=== PATIENT | female | born 1970 | race Hispanic/Latino ===

== ENCOUNTER → 2019-05-26 | Day surgery (SDC) | payer OTHER ==
--- NOTE | 2019-05-24 12:15 | NUR ---
Dr. Tay notified of labs not within [address] Tay ordered CBC, CMP, and PT/INR.
[2019-05-24 12:56] LABS: BASOPHILS # (AUTO) 0.1 (0.0-0.1); BASOPHILS % 0.7 % (0.0-1.0); EOSINOPHILS # (AUTO) 0.3 (0.0-0.4); EOSINOPHILS % 3.3 % (0.0-6.0); HEMATOCRIT 42.3 % (34.2-44.1); LYMPHOCYTES # (AUTO) 3.3 (1.0-3.2); LYMPHOCYTES % 43.3 % (18.0-39.1); MEAN CORPUSCULAR HEMOGLOBIN 29.4 pg (28-32); MEAN CORPUSCULAR HGB CONC 33.1 g/dL (31-35); MEAN CORPUSCULAR VOLUME 88.9 fL (81-99); MONOCYTES # (AUTO) 0.7 (0.2-0.8); MONOCYTES % 9.3 % (4.4-11.3); NEUTROPHILS # (AUTO) 3.2 (2.1-6.9); PLATELET COUNT 201 x10e3/uL (140-360); RED BLOOD COUNT 4.76 x10e6/uL (3.6-5.1); RED CELL DISTRIBUTION WIDTH 12.2 % (11.7-14.4)
[2019-05-24 13:08] LABS: INR 0.94; PROTHROMBIN TIME 13.1 seconds (11.9-14.5)
[2019-05-24 13:17] LABS: ALANINE AMINOTRANSFERASE 37 IU/L (0-55); ALBUMIN 4.4 g/dL (3.5-5.0); ALBUMIN/GLOBULIN RATIO 1.2 (0.8-2.0); ALKALINE PHOSPHATASE 62 IU/L (40-150); ANION GAP 14.2 mmol/L (8-16); BLOOD UREA NITROGEN 19 mg/dL (7-26); BUN/CREATININE RATIO 22 (6-25); CALCIUM 10.5 mg/dL (8.4-10.2); CARBON DIOXIDE 28 mmol/L (22-29); CHLORIDE 98 mmol/L (98-107); CREATININE, SERUM 0.86 mg/dL (0.57-1.11); EST GLOMERULAR FILTRATION RATE > 60 ML/MIN (60-); GLUCOSE 89 mg/dL (74-118); POTASSIUM 4.2 mmol/L (3.5-5.1); SODIUM 136 mmol/L (136-145)
[2019-05-26] VITALS (7 sets, daily range): BP systolic 124–143; BP diastolic 60–82
[~2019-05-26] VITALS: Ht 162.6 cm; Wt 116.1 kg
[~2019-05-26] MED LIST: ALPRAZOLAM 0.5 MG TAB ONE; ATORVASTATIN CA20 MG PO; BENICAR HCT 201 EACH PO; DIPHENHYDRAMINE HCL 25 MG CAP ONE; FENTANYL CITRATE/PF 100MCG/2 ML INJ ONE; HEPARIN SOD (PORCINE) 1000 UNIT/ML 30ML ONE; HEPARIN SOD/SOD CHLORIDE 2,000 ML ONE; IOPAMIDOL 370 MG/ML 200 ML INFUS..BTL INJ ONE; LIDOCAINE HCL 2% LOCAL 20 ML VIAL ONE; MIDAZOLAM HCL 2 MG/2 ML VIAL ONE; SODIUM CHLORIDE 0.9% 1000ML 1,000 ML ONE; VERAPAMIL HCL 2.5 MG/ML 2 ML VIAL ONE
--- OUTSIDE RECORDS SUMMARY | 2019-05-26 12:35 | XMS REPORT | Summary of Care ---
Author Author [facility] Organization [facility] Address Unknown Phone Unavailable Encounter HQ Encntr_wong(FIN) [id number] Date(s): 02/01/19 - 03/02/19 [facility] [address] [place] [address]- [phone] Discharge Disposition: Home or Self Care Attending Physician: Gibran To MD Referring Physician: Gibran To MD Vital Signs No data available for this section Problem List No data available for this section Allergies, Adverse Reactions, Alerts No data available for this section Medications No data available for this section Results No data available for this section Immunizations No data available for this section Procedures No data available for this section Social History No data available for this section Assessment and Plan No data available for this section
--- OUTSIDE RECORDS SUMMARY | 2019-05-26 12:35 | XMS REPORT | Encounter Summary ---
Author Organization Unknown Address [address] [place] [address] Phone [phone] Reason for Visit Medical Complaint Instructions 1. Influenza-like illness Tamiflu 75 mg capsule rapid flu (A+B) influenza (flu): care instructions 2. History of hypertension 3. Immunization due 4. Body mass index 40+ - severely obese body mass index: care instructions Discussion Note Take charge of your health handout given and discussed. SE of medictions discussed and pt verbalized understanding. Plan of Care Patient Instructions How can you care for yourself at home? Get plenty of rest. Drink plenty of fluids, enough so that your urine is light yellow or clear like water. If you have kidney, heart, or liver disease and have to limit fluids, talk with your doctor before you increase the amount of fluids you drink. Take an htmr-onq-gdgkcws pain medicine if needed, such as acetaminophen (Tylenol), ibuprofen (Advil, Motrin), or naproxen (Aleve), to relieve fever, headache, and muscle aches. Read and follow all instructions on the label. No one younger than 20 should take aspirin. It has been linked to Tahir syndrome, a serious illness. Do not smoke. Smoking can make the flu worse. If you need help quitting, talk to your doctor about stop-smoking programs and medicines. These can increase your chances of quitting for good. Breathe moist air from a hot shower or from a sink filled with hot water to help clear a stuffy nose. Before you use cough and cold medicines, check the label. These medicines may not be safe for young children or for people with certain health problems. If the skin around your nose and lips becomes sore, put some petroleum jelly on the area. To ease coughing: Drink fluids to soothe a scratchy throat. Suck on cough drops or plain hard candy. Take an gkkc-tff-unzedhf cough medicine that contains dextromethorphan to help you get some sleep. Read and follow all instructions on the label. Raise your head at night with an extra pillow. This may help you rest if coughing keeps you awake. Take any prescribed medicine exactly as directed. Call your doctor if you think you are having a problem with your medicine. To avoid spreading the flu Wash your hands regularly, and keep your hands away from your face. Stay home from school, work, and other public places until you are feeling better and your fever has been gone for at least 24 hours. The fever needs to have gone away on its own without the help of medicine. Ask people living with you to talk to their doctors about preventing the flu. They may get antiviral medicine to keep from getting the flu from you. To prevent the flu in the future, get a flu vaccine every fall. Encourage people living with you to get the vaccine. Cover your mouth when you cough or sneeze. When should you call for help? Call 911 anytime you think you may need emergency care. For example, call if: You have severe trouble breathing. Call your doctor now or seek immediate medical care if: You have new or worse trouble breathing. You seem to be getting much sicker. You feel very sleepy or confused. You have a new or higher fever. You get a new rash. Watch closely for changes in your health, and be sure to contact your doctor if: You begin to get better and then get worse. You are not getting better after 1 week. Reminders Provider Appointments None recorded. Lab Rapid Flu (A+B) 11/03/2018 [facility] Referral None recorded. Procedures None recorded. Surgeries None recorded. Imaging None recorded. Medications Name Start Date atorvastatin 20 mg tablet TAKE ONE (1) TABLET(S) BY MOUTH AT BEDTIME. diclofenac 1 % topical gel olmesartan 20 mg-hydrochlorothiazide 12.5 mg tablet Tamiflu 75 mg capsule Take 1 capsule twice a day by oral route for 5 days. Medications Administered None recorded. Vitals Height Weight BMI Blood Pressure 5 ft 4 in 240 lbs 41.2 kg/m2 (1) 120/78 mm[Hg] (2) 116/72 mm[Hg] Lab Results Date Name Specimen Result Interpretation Description Value Range Status Address Rapid Flu (A+B) Influenza a negative [facility]: [address] [place] [address] Influenza B negative [facility]: [address] [facility] Allergies Code Code System Name Reaction Severity Status Onset Penicillins Active Problems No Known Problems Procedures Date Name Performed by 07/21/2017 Tubal Ligation Information not available Vaccine List None recorded. Social History Smoking Status Never Smoker Past Encounters 11/03/2018 Influenza-like Illness; History of Hypertension; Immunization Due; Body Mass Index 40+ - Severely Obese Miguel Angel Capone, [facility]-C: [address] [place] [address], Ph. History of Present Illness Uhmpwxo-Zoffa-Rop Reported By: Patient HPI: Quality: cannot identify. Duration: 1 days. Severity: highest temperature 101. Onset/Timing: first recorded 11/03/18. Context: no ill contacts, no tick/insect bites, no recent travel, no new medications. Associated Symptoms: no rash, no lethargy, fever/chills, headache, muscle aches, tired (fatigue); vomiting. Modifying Factors OTC medication Review of Systems:ROS as noted in the HPI Review of Systems Basic Reported By: Patient Physical Exam Adult Basic, Adult Female Complete Reported By: Patient Constitutional: General Appearance: obese. Level of Distress: moderate distress, acutely ill. Ambulation: ambulating normally Psychiatric: Mental Status: active and alert. Orientation: to time, to place, to person Eyes: Lids and Conjunctivae: no discharge, no pallor, injected Suo-Ienr-Ezrlx-Throat: Ears: no lesions on external ear, no outer ear tenderness, EACs clear, TMs clear. Hearing: no hearing loss. Nose: no lesions on external nose, nares patent, no septal deviation, nasal passages clear, no sinus tenderness, post nasal drip. Lips, Teeth, and Gums: no mouth or lip ulcers, no bleeding gums, normal dentition. Oropharynx: moist mucous membranes, no exudates, tonsils not enlarged, erythema Neck: Lymph Nodes: anterior cervical LAD Lungs: Respiratory effort: no dyspnea, no tachypnea, no use of accessory muscles, no intercostal retractions. Auscultation: breath sounds normal Cardiovascular: Heart Auscultation: RRR, no murmurs Skin: Inspection and palpation: no rash
--- OUTSIDE RECORDS SUMMARY | 2019-05-26 12:35 | XMS REPORT | Summary of Care ---
Author Author [facility] Organization [facility] Address Unknown Phone Unavailable Encounter HQ Encntr_alidayanara(FIN) [id number] Date(s): 03/07/19 - 04/05/19 [facility] [address] [place] [address]- [phone] Discharge Disposition: Home or Self Care Attending [...]
--- OUTSIDE RECORDS SUMMARY | 2019-05-26 12:35 | XMS REPORT | Summary of Care ---
Author Author [facility] Outpatient Imaging [facility] Outpatient Imaging [facility] Address Unknown Phone Unavailable Encounter HQ Loganntr_wong(SANKET) [id number] Date(s): 03/31/17 - 03/31/17 [facility] Outpatient Imaging [facility] [address] [facility], [address] [place], [place] [address] [phone] Discharge Disposition: Home or Self Care Attending Physician: Alvin Desouza MD Vital Signs No data available for [...]
--- OUTSIDE RECORDS SUMMARY | 2019-05-26 12:35 | XMS REPORT | Continuity of Care Document ---
Author Author [facility] Organization [facility] Address Unknown Phone Unavailable Care Team Providers Care Assemblyman Or Woman Name Role Phone [facility] Unavailable Unavailable Problems Problem Status Onset Date Classification Date Reported Comments Source E66.01 / I10 / E78.00 Active 04/05/2019 [facility] Body mass index 40+ - severely obese 03/21/2019 Diagnosis 03/21/2019 [facility] Acute rhinosinusitis 03/21/2019 Diagnosis 03/21/2019 [facility] Immunization 03/21/2019 Diagnosis 03/21/2019 [facility] Hyperlipidemia 03/21/2019 Problem 03/21/2019 [facility] Hypertensive disorder 03/21/2019 Problem 03/21/2019 [facility] Immunization due 11/04/2018 Diagnosis 11/04/2018 [facility] Influenza-like illness 11/04/2018 Diagnosis 11/04/2018 [facility] History of hypertension 11/04/2018 Diagnosis 11/04/2018 [facility] M25.511 - PAIN IN RIGHT SHOULDER Active 03/31/2017 [facility] Acute upper respiratory infection Problem 01/11/2018 [facility] Medications Medication Details Route Status Patient Instructions Ordering Provider Order Date Source Acetaminophen 500 MG Oral Tablet acetaminophen 500 mg tablet Take 2 tablets every 6 hours by oral route. Active [facility] atorvastatin 20 MG Oral Tablet atorvastatin 20 mg tablet TAKE ONE (1) TABLET(S) BY MOUTH DAILY _NEEDS OFFICE VISIT_. Active [facility] benzonatate 200 MG Oral Capsule benzonatate 200 mg capsule Take 1 capsule 3 times a day by oral route. Active [facility] Lisinopril 10 MG Oral Tablet lisinopril 10 mg tablet TAKE ONE (1) TABLET(S) BY MOUTH ONCE A DAY. Active [facility] Oseltamivir 75 MG Oral Capsule [Tamiflu] Tamiflu 75 mg capsule Take 1 capsule twice a day by oral route for 5 days. Active [facility] Diclofenac Sodium 0.01 MG/MG Topical Gel diclofenac 1 % topical gel Active [facility] Hydrochlorothiazide 12.5 MG / Olmesartan medoxomil 20 MG Oral Tablet olmesartan 20 mg-hydrochlorothiazide 12.5 mg tablet TAKE ONE (1) TABLET(S) BY MOUTH DAILY. Active [facility] Allergies, Adverse Reactions, Alerts Substance Category Reaction Severity Reaction type Status Date Reported Comments Source Penicillins Allergy to substance 08/06/2009 [facility] Immunizations No Data Provided for This Section Results Order Name Results Value Reference Range Date Interpretation Comments Source Influenza A negative 11/03/2018 [facility] Influenza B negative 11/03/2018 [facility] Influenza A negative 01/10/2018 [facility] Influenza B negative 01/10/2018 [facility] Pathology Reports No Data Provided for This Section Diagnostic Reports Report Value Date Source Chest 2 views DX EXAM: XR CHEST 2 VIEWS DATE: 03/29/2018 4:13 PM CDT INDICATION: - persistent cough COMPARISON: None. TECHNIQUE: PA and lateral chest radiographs. FINDINGS: Lines, tubes and hardware: None. Lungs and pleura: The lungs are clear. No pleural effusion or pneumothorax. Heart and mediastinum: The heart size is normal. The mediastinal contours are normal. Pulmonary vascularity is normal. Bones: No acute abnormality. IMPRESSION: 1. No acute abnormality. 03/29/2018 [facility] Shoulder series DX EXAM: XR LEFT SHOULDER 3 VIEWS DATE: 03/31/2017 3:26 PM CDT INDICATION: - M25.511 Pain in right shoulder COMPARISON: None available TECHNIQUE: 3 views of the shoulder FINDINGS: No acute fracture or malalignment is identified. Calcific tendinosis is noted at the insertion of the supraspinatus. No other soft tissue abnormality is identified. IMPRESSION: 1. No acute abnormality. 2. Supraspinatus calcific tendinosis. 03/31/2017 [facility] Consultation Notes No Data Provided for This Section Discharge Summaries No Data Provided for This Section History and Physicals No Data Provided for This Section Vital Signs Vital Sign Value Date Comments Source Diastolic (mm Hg) 74 03/21/2019 [facility] Height 64 03/21/2019 [facility] Systolic (mm Hg) 116 03/21/2019 [facility] Weight 256 03/21/2019 [facility] Diastolic (mm Hg) 72 11/03/2018 [facility] Height 64 11/03/2018 [facility] Systolic (mm Hg) 116 11/03/2018 [facility] Weight 240 11/03/2018 [facility] Diastolic (mm Hg) 84 01/10/2018 [facility] Height 63 01/10/2018 [facility] Systolic (mm Hg) 136 01/10/2018 [facility] Weight 250 01/10/2018 [facility] Encounters Location Location Details Encounter Type Encounter Number Reason For Visit Attending Provider ADM Date DC Date Status Source [facility] Outpatient Imaging [facility] [id number] Alvin Desouza 03/31/2017 04/01/2017 [facility] [place] - [facility] - [id number] Ayden Lawson, LITHOGRAPHIC RETOUCHER APPRENTICE-C: [address] [place] [address], Ph. [id number] Ayden Lawson 01/10/2018 [facility] Outpatient Imaging [facility] [id number] Radha Orellana 03/29/2018 03/30/2018 [facility] - [facility] - [id number] Miguel Angel Capone LITHOGRAPHIC RETOUCHER APPRENTICE-C: [address] [place] [address], Ph. [id number] Miguel Angel Capone 11/03/2018 [facility] Recurring [id number] Gibran To 02/01/2019 2019 [facility] Recurring [id number] Gibran To 03/07/2019 04/06/2019 [facility] - [facility] - [id number] Luci Horton, LITHOGRAPHIC RETOUCHER APPRENTICE-C: [address] [place] [address], Ph. [id number] Luci Horton 03/21/2019 [facility] Procedures Procedure Code Date Perfomer Comments Source Tubal Ligation 07/21/2017 [facility] Assessment and Plan No Data Provided for This Section Plan of Care No Data Provided for This Section Social History Social History Date Source No data available for this section 04/06/2019 [facility] No data available for this section 03/30/2018 [facility] Smoking Status Never Smoker 01/11/2018 [facility] Family History No Data Provided for This Section Advance Directives No Data Provided for This Section Functional Status No Data Provided for This Section
--- OUTSIDE RECORDS SUMMARY | 2019-05-26 12:35 | XMS REPORT | Summary of Care ---
Author Author [facility] Outpatient Imaging [facility] Outpatient [facility] Address Unknown Phone Unavailable Encounter HQ Encntr_alidayanara(FIN) [id number] Date(s): 03/29/18 - 03/29/18 [facility] Outpatient Imaging [facility] [address] [facility], [address] [place], [place] [address] [phone] Discharge Disposition: Home or Self Care Attending Physician: Radha Orellana MD Vital Signs No data available for [...]
--- OUTSIDE RECORDS SUMMARY | 2019-05-26 12:35 | XMS REPORT | Encounter Summary ---
Author Organization Unknown Address [address] [place] [address] Phone [phone] Reason for Visit Medical Complaint Instructions 1. Immunization 2. Acute rhinosinusitis upper respiratory infection (cold): care instructions 3. Body mass index 40+ - severely obese body mass index: care instructions learning about healthy weight Discussion Note: None recorded. Plan of Care Patient Instructions Upper Respiratory Infection (URI) - Viral This is most likely viral and does not currently require treatment with an antibiotic. Antibiotics are not helpful with viral illnesses and may cause side effects. If symptoms continue and worsen past 7 days, [facility] treatment [facility]. Symptoms tend to worsen until around days 3-5 and then should improve each day afterwards. Symptoms tend to last 7-14 days, but cough can linger beyond 14 days. Use over the counter medications as directed If symptoms continue to worsen instead of improve, or worsening cough, shortness of breath, sinus pressure/pain, thick mucus, or other concerning symptoms develop, call or [facility] or your primary care provider for further care. Seek immediate medical attention (ER or 911) if difficulty breathing, chest pain, chest pressure, severe headache, or other concerning symptoms develop. If you have any need to contact [facility], including questions or concerns, please contact or Reminders Provider Appointments None recorded. Lab None recorded. Referral None recorded. Procedures None recorded. Surgeries None recorded. Imaging None recorded. Medications Name Start Date atorvastatin 20 mg tablet TAKE ONE (1) TABLET(S) BY MOUTH DAILY _NEEDS OFFICE VISIT_. olmesartan 20 mg-hydrochlorothiazide 12.5 mg tablet TAKE ONE (1) TABLET(S) BY MOUTH DAILY. Medications Administered None recorded. Vitals Height Weight BMI Blood Pressure 5 ft 4 in 256 lbs 43.9 kg/m2 116/74 mm[Hg] Lab Results None recorded. Allergies Code Code System Name Reaction Severity Status Onset Penicillins Active Problems Name Status Onset Date Source Hyperlipidemia Active 03/21/2019 Hypertensive Disorder Active 03/21/2019 Procedures Date Name Performed by 07/21/2017 Tubal Ligation Information not available Vaccine List None recorded. Social History Smoking Status Never Smoker Past Encounters 03/21/2019 Immunization; Acute Rhinosinusitis; Body Mass Index 40+ - Severely Obese Luci Horton, FLIGHT INSPECTOR-C: [address] [place] [address], Ph. History of Present Illness Wmrec-Oflsbhqrdr-Nrtvwza Reported By: Patient HPI: Quality: productive cough, sore throat, nasal/sinus congestion, dry cough; started wednesday nasal congestionlow grade fever 99 F. Duration: 4days. Severity: ; somewhat better. Context: no sick contacts. Modifying factors: OTC medication. Associated Symptoms: no shortness of breath, no wheezing, no vomiting, no diarrhea, no rash, no nausea, fever, muscle aches, headache Review of Systems:ROS as noted in the HPI Review of Systems Basic Reported By: Patient Physical Exam Adult Basic, Adult Female Complete Reported By: Patient Constitutional: General Appearance: healthy-appearing, well-nourished, well-developed. Level of Distress: NAD. Ambulation: ambulating normally Ejc-Jdox-Bxrzc-Throat: Ears: no lesions on external ear, no outer ear tenderness, EACs clear, TMs clear. Hearing: no hearing loss. Nose: no lesions on external nose, nares patent, no septal deviation, sinus tenderness, post nasal drip. Oropharynx: no erythema, no exudates, tonsils not enlarged Neck: Thyroid: no enlargement Lungs: Respiratory effort: no dyspnea, no tachypnea, no use of accessory muscles, no intercostal retractions. Auscultation: breath sounds normal Cardiovascular: Heart Auscultation: RRR, no murmurs
--- OUTSIDE RECORDS SUMMARY | 2019-05-26 12:35 | XMS REPORT | Encounter Summary ---
Author Organization Unknown Address [address] [place] [address] Phone [phone] Reason for Visit Medical Complaint Instructions 1. Influenza-like illness Tamiflu 75 mg capsule rapid flu (A+B) influenza (flu): care instructions acetaminophen 500 mg tablet benzonatate 200 mg capsule 2. Body mass index 40+ - severely obese eating healthy foods: care instructions A healthy lifestyle: care instructions body mass index: care instructions Discussion Note Pt is in no apparent acute distress; Verbalizes understanding of and agreement with all instructions with no questions at this time. Plan of Care Patient Instructions Take all medications as directed. Follow up with your PCP as needed. Seek additional medical care with new or worsening symptoms, or if symptoms do not resolve in 3-4 days. Thank you for allowing me to participate in your healthcare! Reminders Provider Appointments None recorded. Lab Rapid Flu (A+B) 01/10/2018 [facility] Referral None recorded. Procedures None recorded. Surgeries None recorded. Imaging None recorded. Medications Name Start Date acetaminophen 500 mg tablet Take 2 tablets every 6 hours by oral route. atorvastatin 20 mg tablet TAKE ONE (1) TABLET(S) BY MOUTH ONCE A DAY AT BEDTIME. benzonatate 200 mg capsule Take 1 capsule 3 times a day by oral route. lisinopril 10 mg tablet TAKE ONE (1) TABLET(S) BY MOUTH ONCE A DAY. Tamiflu 75 mg capsule Take 1 capsule twice a day by oral route for 5 days. Medications Administered None recorded. Vitals Height Weight BMI Blood Pressure 5 ft 3 in 250 lbs 44.3 kg/m2 136/84 mm[Hg] Lab Results Date Name Specimen Result Interpretation Description Value Range Status Address Rapid Flu (A+B) Influenza a negative [facility]: [address] [place] [address] Influenza B negative [facility]: [address] [place] [address] Allergies Code Code System Name Reaction Severity Status Onset NKDA Problems Name Status Onset Date Source Acute Upper Respiratory Infection Active Encounter Procedures Date Name Performed by 07/21/2017 Tubal Ligation Information not available Vaccine List None recorded. Social History Smoking Status Never Smoker Past Encounters 01/10/2018 Influenza-like Illness; Body Mass Index 40+ - Severely Obese Ayden Lawson, [facility]-C: [address] [place] [address], Ph. History of Present Illness Byvwf-Ezqfqugqbn-Trzhvao Reported By: Patient HPI: Location: head/sinuses. Quality: sore throat, colored phlegm, nasal/sinus congestion. Duration: 2days. Severity: mild, moderate. Onset/Timing: gradual. Context: no sick contacts, no foreign travel, non-smoker. Associated Symptoms: no shortness of breath, no wheezing, no change in number of pillows needed to sleep at night, no sweats, no significant weight gain, no significant weight loss, no vomiting, no diarrhea, no rash, no nausea, no fever, no headache, green sputum, morning cough, sore throat, fever, muscle aches Review of Systems:ROS as noted in the HPI Review of Systems Basic Reported By: Patient Physical Exam Adult Basic Reported By: Patient Constitutional: General Appearance: healthy-appearing, well-nourished, well-developed. Level of Distress: NAD. Ambulation: ambulating normally Psychiatric: Mental Status: active and alert. Orientation: to time, to place, to person Eyes: Lids and Conjunctivae: non-injected, no discharge, no pallor. Pupils: PERRLA. Corneas: grossly intact. EOM: EOMI. Lens: clear. Sclerae: non-icteric. Vision: acuity grossly intact Ycm-Aevk-Ihuwf-Throat: Ears: no lesions on external ear, no outer ear tenderness, EACs clear, TMs clear. Hearing: no hearing loss. Nose: no lesions on external nose, nares patent, no septal deviation, nasal passages clear, no sinus tenderness, nasal discharge--rhinorrhea, post nasal drip Neck: Neck: supple, trachea midline, no masses, FROM. Lymph Nodes: no cervical LAD, no supraclavicular LAD. Thyroid: no enlargement, non-tender, no nodules Lungs: Respiratory effort: no dyspnea, no tachypnea, no use of accessory muscles, no intercostal retractions. Auscultation: breath sounds normal Cardiovascular: Heart Auscultation: RRR, no murmurs Neurologic: Gait and Station: normal gait, normal station. Sensation: grossly intact Skin: Inspection and palpation: no rash, no lesions
--- NOTE | 2019-05-26 14:39 | NUR ---
9764 bedside report received from FRANCO Willis. [id number] oriented and appropriate, PERRLA, respirations even and unlabored to room air. Pulses x4 extremities equal and strong. Pedal pulses PT/DP Cap fill brisk < 3 sec.Rt TR band site w/o hematoma or oozing. Rt Perclose site dry and intact. Skin warm and dry integrity appears W/D. IV 20g to left hand presents healthy w/o s/s of infiltration or complaint. Abdomen soft and supple. pt offered toileting, denies need to urinate or defecate. No personal affects with patient. Family Tavares [phone]. Pt and family verbalizes understanding of POC. Currently w/o complaint of pain or need. Tolerating po intake. No gross issues pain,pallor,pressure or dysrhythmia ds/franco.
--- NOTE | 2019-05-26 15:30 | NUR ---
1530RADIAL Compression removal: Initial Cuff volume 12 cc -2cc Removed No hematoma/bleeding noted with normal neurovascular function. 1545 -2 cc Removed No hematoma/ bleeding noted with normal neurovascular function. 1600 -2 cc Removed No hematoma/bleeding noted with normal neurovascular function. Air removal completed. ready dc home Stasis achieved sterile 2x2,Tegaderm, Coban dressing No hematoma, bleeding noted with normal neurovascular function. Wrist splint in place. Pt instructed on POC. Ds/Rn
--- NOTE | 2019-05-26 16:00 | NUR ---
1600Pt meets DC criteria. rt groin and rt tr band site assessed for s/s of complication and presecence of hematoma. warm, dry, no discolor, and pulses present. IV removed from left . Distal tip appears intact. VS WNL. Pt denies pain, sob, or need at this time. Family at bedside. Review of discharge paperwork and follow up instructions. verbalized understanding. Pt to wheelchair and transported to front of hospital. Transferred to private vehicle under own strength w/o incident with DC paperwork in hand. -ds/rn
--- NOTE | 2019-05-30 19:31 | Operative Report ---
DATE OF PROCEDURE: 05/26/2019 SURGEON: Miguel Tay MD INDICATIONS: Coronary artery disease, abnormal stress test. PROCEDURES PERFORMED: 1. Left heart catheterization, selective coronary angiography. 2. Fractional flow reserve measurement across the left anterior descending artery. 3. Deployment of right groin Perclose and right wrist TR band. DESCRIPTION OF PROCEDURE: Access obtained in the right radial artery, unable to advance catheter due to right brachial loop. Access obtained in the right femoral artery. A 6-Polish sheath was placed. Coronary angiography demonstrated normal origin of the right coronary artery from the ascending aorta, mild disease in all coronary vessels, 50% proximal left anterior descending artery stenosis. Left coronary artery was cannulated using an XB 3.5 guiding catheter. The patient's received Angiomax for anticoagulation. A Comet wire was advanced across the lesion for measurement of fractional flow reserve, which was 0.96. Lesion was felt to be insignificant. No intervention was deemed necessary. Right groin repaired using Perclose. Right wrist TR band applied. The patient discharged home same day. MD DAVID Marrero/MODL /[id number]
== END | disposition home or self-care (01) ==
LOC: CATH LAB 12:33
PROVIDERS: ATTEND Internal Medicine Interventional Cardiology
DX: I25.118 Atherosclerotic heart disease of native coronary artery with other forms of angina pectoris (principal); Z01.812 Encounter for preprocedural laboratory examination; I10 Essential (primary) hypertension; E78.00 Pure hypercholesterolemia, unspecified; Z88.0 Allergy status to penicillin; Z82.49 Family history of ischemic heart disease and other diseases of the circulatory system; Z68.41 Body mass index [BMI] 40.0-44.9, adult
CPT/HCPCS: 36415; 80053; 84702; 85025; 85610; 93458; 93571; C1725; C1769 ×3; C1887; J1644; J2001; J2250; J3010; J7030; Q9967

== ENCOUNTER 2022-05-15 00:35 | Observation (INO) | payer BC, OTHER ==
[~2022-05-15] VITALS: Ht 162.6 cm; Wt 99.8 kg
[~2022-05-15 00:35] MED LIST changes: -ALPRAZOLAM 0.5 MG TAB ONE; -DIPHENHYDRAMINE HCL 25 MG CAP ONE; -FENTANYL CITRATE/PF 100MCG/2 ML INJ ONE; -HEPARIN SOD (PORCINE) 1000 UNIT/ML 30ML ONE; -HEPARIN SOD/SOD CHLORIDE 2,000 ML ONE; -IOPAMIDOL 370 MG/ML 200 ML INFUS..BTL INJ ONE; -LIDOCAINE HCL 2% LOCAL 20 ML VIAL ONE; -MIDAZOLAM HCL 2 MG/2 ML VIAL ONE; -SODIUM CHLORIDE 0.9% 1000ML 1,000 ML ONE; -VERAPAMIL HCL 2.5 MG/ML 2 ML VIAL ONE
[2022-05-15] MEDS ORDERED: KETOROLAC TROMETHAMINE 30 MG/ML VIAL IV STA (00:49)
[2022-05-15] MEDS ORDERED: ONDANSETRON HCL INJ 2MG/ML 2ML 2 MG/ML VIAL IV STA (00:51)
[2022-05-15] MEDS ORDERED: SODIUM CHLORIDE 0.9% 1000ML 1,000 ML IV STA (00:51)
[2022-05-15] MEDS ORDERED: ONDANSETRON HCL INJ 2MG/ML 2ML 2 MG/ML VIAL ONE (01:04)
[2022-05-15] MEDS ORDERED: KETOROLAC TROMETHAMINE 30 MG/ML VIAL ONE (01:05)
[2022-05-15] MEDS ORDERED: SODIUM CHLORIDE 0.9% 1000ML 1,000 ML ONE (01:05)
[2022-05-15 01:06] LABS: BASOPHILS # (AUTO) 0.1 (0.0-0.1); BASOPHILS % 0.5 % (0.0-1.0); EOSINOPHILS # (AUTO) 0.2 (0.0-0.4); EOSINOPHILS % 1.8 % (0.0-6.0); HEMATOCRIT 40.9 % (34.2-44.1); HEMOGLOBIN 13.4 g/dL (12.0-16.0); LYMPHOCYTES # (AUTO) 2.1 (1.0-3.2); LYMPHOCYTES % 20.2 % (18.0-39.1); MEAN CORPUSCULAR HGB CONC 32.8 g/dL (31-35); MEAN CORPUSCULAR VOLUME 88.5 fL (81-99); MONOCYTES # (AUTO) 0.6 (0.2-0.8); MONOCYTES % 5.9 % (4.4-11.3); NEUTROPHILS # (AUTO) 7.6 (2.1-6.9); NEUTROPHILS % 71.2 % (38.7-80.0); PLATELET COUNT 188 x10e3/uL (140-360); RED BLOOD COUNT 4.62 x10e6/uL (3.6-5.1); RED CELL DISTRIBUTION WIDTH 12.3 % (11.7-14.4)
[2022-05-15 01:09] LABS: CLARITY,URINE SL CLOUDY (CLEAR); COLOR,URINE YELLOW (YELLOW); KETONES,URINE TRACE (NEGATIVE); LEUKOCYTE ESTERASE ,URINE NEGATIVE (NEGATIVE); NITRITE,URINE NEGATIVE (NEGATIVE); PROTEIN,URINE DIPSTICK 2+ (NEGATIVE); URINE UROBILINOGEN 1 mg/dL (0.2 - 1)
[2022-05-15 01:13] LABS: BACTERIA,URINE FEW /HPF; EPITHELIAL CELLS,URINE MODERATE /LPF; RBC,URINE >50 /HPF (0-5)
[2022-05-15 01:27] LABS: ALBUMIN 4.4 g/dL (3.5-5.0); ALBUMIN/GLOBULIN RATIO 1.4 (0.8-2.0); ANION GAP 17.3 mmol/L (8-16); CALCIUM 9.3 mg/dL (8.4-10.2); CREATININE, SERUM 1.04 mg/dL (0.57-1.11); POTASSIUM 3.3 mmol/L (3.5-5.1)
[2022-05-15] MEDS ORDERED: Morphine 4mg INJECTION 4 MG/ML INJ IV PRN (03:15)
[2022-05-15] MEDS: SODIUM CHLORIDE 0.9% 1000ML 1,000 ML IV SCH ×4 (03:18→22:58)
[2022-05-15] MEDS ORDERED: ONDANSETRON HCL INJ 2MG/ML 2ML 2 MG/ML VIAL IV PRN (05:00)
[2022-05-15] MEDS ORDERED: IOPAMIDOL 370 MG/ML 100 ML INFUS..BTL INJ ONE (06:17)
[2022-05-15] MEDS ORDERED: POTASSIUM CHLORIDE 20 MEQ TAB CR PO STA (07:50)
[2022-05-15] MEDS ORDERED: KETOROLAC TROMETHAMINE 30 MG/ML VIAL IV PRN (08:00)
[2022-05-15 14:05] VITALS: BP 148/90
[2022-05-15 14:53] VITALS: BP 148/90
[2022-05-15 15:22] VITALS: BP 148/90
[2022-05-15 16:25] VITALS: BP 135/81
[2022-05-15] MEDS ORDERED: LEVOFLOXACIN 500MG/D5W 100ML 100 ML IV SCH (17:15)
[2022-05-15 20:00] VITALS: BP 135/85
[2022-05-15 20:01] VITALS: BP 135/85
[2022-05-16] VITALS: BP 141/85
[2022-05-16 04:00] VITALS: BP 129/87
[2022-05-16] MEDS: SODIUM CHLORIDE 0.9% 1000ML 1,000 ML IV SCH (06:07)
[2022-05-16 07:09] LABS: BASOPHILS % 0.5 % (0.0-1.0); EOSINOPHILS # (AUTO) 0.2 (0.0-0.4); EOSINOPHILS % 2.7 % (0.0-6.0); HEMATOCRIT 36.8 % (34.2-44.1); HEMOGLOBIN 11.8 g/dL (12.0-16.0); LYMPHOCYTES # (AUTO) 2.5 (1.0-3.2); LYMPHOCYTES % 43.1 % (18.0-39.1); MEAN CORPUSCULAR HEMOGLOBIN 28.9 pg (28-32); MEAN CORPUSCULAR HGB CONC 32.1 g/dL (31-35); MEAN CORPUSCULAR VOLUME 90.2 fL (81-99); MONOCYTES # (AUTO) 0.5 (0.2-0.8); MONOCYTES % 7.7 % (4.4-11.3); NEUTROPHILS # (AUTO) 2.7 (2.1-6.9); NEUTROPHILS % 45.8 % (38.7-80.0); PLATELET COUNT 140 x10e3/uL (140-360); RED BLOOD COUNT 4.08 x10e6/uL (3.6-5.1); RED CELL DISTRIBUTION WIDTH 12.2 % (11.7-14.4)
[2022-05-16 07:49] LABS: ALBUMIN 3.4 g/dL (3.5-5.0); ALBUMIN/GLOBULIN RATIO 1.3 (0.8-2.0); ANION GAP 14.5 mmol/L (8-16); CALCIUM 8.8 mg/dL (8.4-10.2); CREATININE, SERUM 0.72 mg/dL (0.57-1.11); POTASSIUM 3.5 mmol/L (3.5-5.1)
[2022-05-16 08:14] VITALS: BP 123/78
[2022-05-16 09:00] VITALS: BP 123/78
[2022-05-16] MEDS ORDERED: POTASSIUM CHLORIDE 10MEQ EA PO ONE (10:30)
[2022-05-16] MEDS ORDERED: LEVOFLOXACIN250 MG PO (10:50)
[2022-05-16] MEDS ORDERED: KETOROLAC TROME10 MG PO (10:51)
== END 2022-05-16 11:23 | disposition home or self-care (01) ==
LOC: ER 00:40 → INTOOBSV 03:04 → ERHOLD 03:04 → MED/SURG3 12:40
PROVIDERS: ADMIT Internal Medicine; ATTEND Internal Medicine
DX: N20.0 Calculus of kidney (principal); N39.0 Urinary tract infection, site not specified; Z20.822 Contact with and (suspected) exposure to COVID-19; N17.9 Acute kidney failure, unspecified; E66.9 Obesity, unspecified; Z68.37 Body mass index [BMI] 37.0-37.9, adult; I11.9 Hypertensive heart disease without heart failure; R16.0 Hepatomegaly, not elsewhere classified; K76.0 Fatty (change of) liver, not elsewhere classified; R31.9 Hematuria, unspecified
CPT/HCPCS: 0223U; 36415 ×2; 74018 ×2; 74177; 80053 ×2; 81001; 83690; 83735; 83970; 84550; 85025 ×2; 87086; 96361; 99284; G0378 ×2; J1885; J1956; J2405; J7030 ×2; Q9967

== ENCOUNTER 2022-11-17 14:41 | Emergency (ER) | payer BC ==
[~2022-11-17] VITALS: Ht 160 cm; Wt 99.8 kg
[~2022-11-17 14:41] MED LIST changes: +KETOROLAC TROME10 MG PO; +LEVOFLOXACIN250 MG PO
[2022-11-17] MEDS ORDERED: KETOROLAC TROMETHAMINE 30 MG/ML VIAL IV STA (15:10)
[2022-11-17] MEDS ORDERED: ONDANSETRON HCL INJ 2MG/ML 2ML 2 MG/ML VIAL IV PRN (15:15)
[2022-11-17] MEDS ORDERED: SODIUM CHLORIDE 0.9% 1000ML 1,000 ML IV ONE (15:15)
[2022-11-17 15:35] LABS: BASOPHILS # (AUTO) 0.1 (0.0-0.1); BASOPHILS % 0.6 % (0.0-1.0); EOSINOPHILS # (AUTO) 0.3 (0.0-0.4); HEMATOCRIT 40.4 % (34.2-44.1); HEMOGLOBIN 13.3 g/dL (12.0-16.0); LYMPHOCYTES # (AUTO) 2.8 (1.0-3.2); LYMPHOCYTES % 33.6 % (18.0-39.1); MEAN CORPUSCULAR HEMOGLOBIN 29.4 pg (28-32); MEAN CORPUSCULAR HGB CONC 32.9 g/dL (31-35); MEAN CORPUSCULAR VOLUME 89.2 fL (81-99); MONOCYTES # (AUTO) 0.6 (0.2-0.8); MONOCYTES % 7.3 % (4.4-11.3); NEUTROPHILS # (AUTO) 4.6 (2.1-6.9); NEUTROPHILS % 55.3 % (38.7-80.0); PLATELET COUNT 198 x10e3/uL (140-360); RED BLOOD COUNT 4.53 x10e6/uL (3.6-5.1); RED CELL DISTRIBUTION WIDTH 12.1 % (11.7-14.4)
[2022-11-17 15:57] LABS: ALBUMIN 4.2 g/dL (3.5-5.0); ALBUMIN/GLOBULIN RATIO 1.3 (0.8-2.0); ANION GAP 14.7 mmol/L (8-16); CALCIUM 9.4 mg/dL (8.4-10.2); CREATININE, SERUM 0.99 mg/dL (0.57-1.11); POTASSIUM 3.7 mmol/L (3.5-5.1)
[2022-11-17 16:44] LABS: CLARITY,URINE TURBID (CLEAR); COLOR,URINE YELLOW (YELLOW); LEUKOCYTE ESTERASE ,URINE NEGATIVE (NEGATIVE); NITRITE,URINE NEGATIVE (NEGATIVE); PROTEIN,URINE DIPSTICK 2+ (NEGATIVE)
[2022-11-17 16:45] LABS: KETONES,URINE TRACE (NEGATIVE); URINE UROBILINOGEN 0.2 mg/dL (0.2 - 1)
[2022-11-17] MEDS ORDERED: ONDANSETRON ODT4 MG PO (16:49)
[2022-11-17] MEDS ORDERED: KETOROLAC TROME10 MG PO (16:49)
[2022-11-17 17:04] LABS: BACTERIA,URINE FEW /HPF; EPITHELIAL CELLS,URINE RARE /LPF; WBC,URINE (MAN) 0-5 /HPF (0-5)
[2022-11-17 17:05] LABS: AMORPHOUS SEDIMENT,URINE MODERATE (FEW)
== END 2022-11-17 17:49 | disposition home or self-care (01) ==
LOC: ER 14:57
DX: R10.32 Left lower quadrant pain (principal); N20.0 Calculus of kidney; R11.2 Nausea with vomiting, unspecified; I10 Essential (primary) hypertension; Z98.84 Bariatric surgery status
CPT/HCPCS: 36415; 74176; 80053; 81001; 81025; 84702; 85025; 87086; 99283; J1885; J2405; J7030